=== PATIENT | male | born 1990 ===

== ENCOUNTER 2022-02-24 11:37 | Emergency (ER) | payer SELFPAY ==
--- NOTE | 2022-02-24 13:20 | Emergency Department Report ---
ED Syncope HPI - General Chief Complaint: Syncope Stated Complaint: SYNCOPE Time Seen by Provider: 02/24/22 13:08 - History of Present Illness Initial Comments: 31 yo M who present to the ED with syncope episode as he was in the middle of given plasma. He says he usually donate all the time with last donation been last week. He denies hitting his head on the floor by sitting on the floor. He denies any sob or palpitation or chest pain before or after the episode. No fever or chills reported. Pt denies any other modifying or associated factors. - Related Data Allergies/Adverse Reactions: Allergies No Known Allergies Allergy (Unverified 02/24/22 12:54) ED Review of Systems ROS: Stated complaint: SYNCOPE Other details as noted in HPI Comment: All other systems reviewed and negative Cardiovascular: syncope ED Past Medical Hx - Past Medical History Previous Medical History?: No - Surgical History Past Surgical History?: No ED Physical Exam - General Limitations: No Limitations General appearance: alert, in no apparent distress - Head Head exam: Present: normal inspection - Eye Eye exam: Present: normal appearance Pupils: Present: normal accommodation - ENT ENT exam: Present: normal exam, normal orophraynx, mucous membranes dry - Neck Neck exam: Present: normal inspection, full ROM. Absent: tenderness - Respiratory Respiratory exam: Present: normal lung sounds bilaterally. Absent: respiratory distress, accessory muscle use - Cardiovascular Cardiovascular Exam: Present: regular rate, normal rhythm, normal heart sounds - GI/Abdominal GI/Abdominal exam: Present: soft, normal bowel sounds. Absent: distended, tenderness - Extremities Exam Extremities exam: Present: normal inspection, normal capillary refill. Absent: full ROM, tenderness, pedal edema - Back Exam Back exam: Absent: tenderness - Neurological Exam Neurological exam: Present: alert, oriented X3 - Psychiatric Psychiatric exam: Present: normal affect, normal mood - Skin Skin exam: Present: warm, intact ED Course Vital Signs 02/24/22 02/24/22 02/24/22 11:52 12:21 12:31 Temperature 98.4 F Pulse Rate 69 69 Respiratory 16 17 16 Rate Blood Pressure Blood Pressure 101/68 [Left] O2 Sat by Pulse 99 100 98 Oximetry 02/24/22 02/24/22 02/24/22 12:45 12:54 13:01 Temperature Pulse Rate 71 68 Respiratory 16 18 17 Rate Blood Pressure 109/64 Blood Pressure [Left] O2 Sat by Pulse 97 98 98 Oximetry 02/24/22 02/24/22 02/24/22 13:15 13:31 13:34 Temperature Pulse Rate 70 61 61 Respiratory 11 L 18 12 Rate Blood Pressure 82/47 111/66 Blood Pressure 111/66 [Left] O2 Sat by Pulse 98 100 100 Oximetry 02/24/22 02/24/22 02/24/22 13:45 14:01 14:15 Temperature Pulse Rate 68 56 L 61 Respiratory 15 15 16 Rate Blood Pressure 102/57 92/61 92/61 Blood Pressure [Left] O2 Sat by Pulse 97 98 100 Oximetry 02/24/22 02/24/22 02/24/22 14:31 14:45 15:01 Temperature Pulse Rate 64 68 57 L Respiratory 20 14 15 Rate Blood Pressure 115/64 126/76 118/76 Blood Pressure [Left] O2 Sat by Pulse 100 100 99 Oximetry 02/24/22 02/24/22 02/24/22 15:15 15:31 15:45 Temperature Pulse Rate 59 L 58 L 62 Respiratory 15 16 18 Rate Blood Pressure 105/65 108/54 111/57 Blood Pressure [Left] O2 Sat by Pulse 100 98 100 Oximetry 02/24/22 16:01 Temperature Pulse Rate 59 L Respiratory 17 Rate Blood Pressure 100/60 Blood Pressure [Left] O2 Sat by Pulse 100 Oximetry ED Medical Decision Making - Lab Data Result diagrams: 02/24/22 14:17 02/24/22 14:17 - EKG Data EKG shows normal: sinus rhythm Rate: normal - EKG Data 02/24/22 16:46 EKG noted to be normal sinus at a rate of 61 bpm with prolonged RI interval but no ST elevation or depression in this abnormal ECG. - Medical Decision Making syncope episode while donating plasma-- this could be vasovagal syncope vs d ehydration -- will go ahead and check for any infectious process or electrolytes abnormality as a cause-- In the meantime will give ivf ns 1L bolus while waiting for the above labs-- Labs noted to be unremarkable -- which supports that notion about vasovagal presyncope-- Critical care attestation.: If time is entered above; I have spent that time in minutes in the direct care of this critically ill patient, excluding procedure time. ED Disposition Clinical Impression: Syncope and collapse Disposition: HOME / SELF CARE / HOMELESS Is pt being admited?: No Does the pt Need Aspirin: No Condition: Stable Instructions: Syncope (ED), Near-Syncope, [id number], Syncope, [id number] Additional Instructions: It is very important that you increase your daily fluid to help your hydration Give your body time to recuperate from giving plasma every week--we suggest you try every other week or once a month Call and follow-up with your primary doctor in the next 3 to 5 days for progress Please do not hesitate to call or return to emergency if your symptoms worsen Referrals: EMMETT CAN MD [Referring] - 3-5 Days Time of Disposition: 16:49
[2022-02-24] MEDS ORDERED: SODIUM CHLORIDE 0.9% 1000 ML 1,000 ML IV ONE (14:01)
[2022-02-24 14:30] LABS: Basophils # (Auto) 0.1 K/mm3 (0.0-0.1); Basophils % (Auto) 0.4 % (0.0-1.8); Eosinophils # (Auto) 0.1 K/mm3 (0.0-0.4); Eosinophils % (Auto) 0.7 % (0.0-4.3); Hematocrit 47.3 % (35.5-45.6); Hemoglobin 15.4 gm/dl (11.8-15.2); Lymphocytes # (Auto) 1.8 K/mm3 (1.2-5.4); Lymphocytes % (Auto) 11.1 % (13.4-35.0); Mean Corpuscular HGB Conc 33 % (32-34); Mean Corpuscular Volume 91 fl (84-94); Monocytes # (Auto) 0.9 K/mm3 (0.0-0.8); Monocytes % (Auto) 5.4 % (0.0-7.3); Platelet Count 263 K/mm3 (140-440); Red Cell Distribution Width 15.1 % (13.2-15.2)
[2022-02-24 14:38] LABS: INR 1.01 (0.87-1.13)
[2022-02-24 15:32] LABS: Creatine Kinase MB 3.2 ng/mL (0.0-4.0)
[2022-02-24 15:35] LABS: Alanine Aminotransferase 12 units/L (7-56); Albumin 3.6 g/dL (3.9-5); BUN/Creatinine Ratio 8; Blood Urea Nitrogen 9 mg/dL (9-20); Calcium 8.8 mg/dL (8.4-10.2); Hemolysis Index 19
[2022-02-24 16:07] VITALS: BP 100/60
--- NOTE | 2022-02-26 13:53 | Electrocardiograph Report ---
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
== END 2022-02-24 18:00 | disposition home or self-care (01) ==
LOC: EDBD → ED 11:37
DX: R55 Syncope and collapse (principal); Z79.899 Other long term (current) drug therapy
CPT/HCPCS: 36415; 80053; 82550; 82553; 83735; 84484; 85025; 85610; 93005; 96360; 99284; J7030